=== PATIENT | female | born 1955 ===

== ENCOUNTER 2017-08-30 08:32 | Outpatient (CLI) | payer OTHER ==
--- NOTE | 2017-08-30 10:27 | Ultrasound Report ---
RIGHT UPPER QUADRANT ABDOMINAL ULTRASOUND: 08/30/17 08:32:00 CLINICAL: Elevated liver function tests. Hepatitis C. FINDINGS: High-resolution ultrasound demonstrated a borderline small liver with a nodular echo pattern, surface nodularity and mild increased echogenicity of the liver. No liver mass. Normal hepatic vasculature and inferior vena cava. Normal gallbladder and bile ducts. The gall bladder wall measures 1.0 mm in thickness. The common bile duct measures 3.0 mm diameter. The pancreas was well imaged and normal. Normal upper abdominal aorta. The right kidney is normal and measures 9.7 x 4.4 x 5.1cm. No ascites or mass. IMPRESSION: 1. Changes in the liver suggest hepatic cirrhosis. 2. No signs of portal hypertension. 3. Normal biliary tract and pancreas.
== END 2017-08-30 08:33 | disposition home or self-care (01) ==
LOC: SPVWC 08:32
PROVIDERS: ATTEND Internal Medicine Gastroenterology
DX: B18.2 Chronic viral hepatitis C (principal); R79.89 Other specified abnormal findings of blood chemistry; R74.8 Abnormal levels of other serum enzymes
CPT/HCPCS: 76705